=== PATIENT | female | born 1965 | race Caucasian/White ===

== ENCOUNTER 2021-08-22 08:11 | Outpatient (REF) | payer OTHER, SELFPAY ==
[2021-08-22 08:44] LABS: COVID-19 Test Negative (Negative)
== END 2021-08-22 08:12 | disposition home or self-care (01) ==
LOC: HO.LAB 08:11
PROVIDERS: Visit Provider Internal Medicine
DX: Z20.822 Contact with and (suspected) exposure to COVID-19 (principal)
CPT/HCPCS: 36415; 87635; C9803

== ENCOUNTER 2024-10-02 11:03 | Outpatient (AMB) | payer OTHER, SELFPAY ==
--- NOTE | 2024-10-02 12:03 | MHC.OFFWIV ---
Intake Vital Signs 10/02/24 12:06 Weight 156 lb BP 130/90 H Blood Pressure Location Rt brachial Position Sitting Pulse 88 Pulse Source Pulse Oximeter Pulse Oximetry (%) 98 Oxygen Delivery Method Room Air Intake Visit Reasons: EP-rt side groin pain Intake Note: Patient here for right sided groin pain that has been present for about 1 week but has worsened the past couple of days. Patient Tobacco Use Status: Never used Tobacco Allergies No Known Allergies Allergy (Verified 10/02/24 12:07) Do you need a note to return to daycare/school/sports/work: No HPI EP-rt side groin pain HPI Details 58 year old female patient presents today with a 1 week history of intermittent right groin pain. She reports a history of ovarian cysts on the right side. She has seen [facility] in [place] previously, however has not been seen there in some time. Describes sensation as soreness . No tenderness to palpation. Denies any urinary or vaginal symptoms. Denies flank pain. No fever/chils. Denies any inciting event to pain such as lifting or exercise. [facility] Social History Patient Tobacco Use Status: Never used Tobacco Review of Systems Const All systems reviewed & are unremarkable except as noted in HPI and below Physical Exam Vital Signs: Last Vital Signs Pulse 88 10/02/24 12:06 BP 130/90 H 10/02/24 12:06 Pulse Ox 98 10/02/24 12:06 Oxygen Delivery Method Room Air 10/02/24 12:06 Const General: cooperative, healthy appearing, comfortable and no acute distress Neck Neck: Yes no lymphadenopathy Resp Effort & Inspection: normal respiratory effort and able to speak in complete sentences GI Inspection: Yes normal to inspection Palpation (GI): Soft to palpation Other: mild right groin tenderness to deep palp. General: Yes bladder normal to palpation and Yes no CVA tenderness Bimanual exam- vagina & uterus: bladder normal to palpation Back/Spine/Pelvis Back: no CVA tenderness Skin General skin exam: no rashes or lesions noted Extrem Other: normal right hip exam/ROM General: Yes capillary refill normal and Yes no clubbing, cyanosis or edema Psych Appearance: grossly normal Mental Status: mental status grossly normal Speech and movement: Normal speech and movement present Results AMB Urinalysis, Automated UA Leukoctes 0 Portillo/uL Last Edit by Annamarie Gracia CCM on 10/02/24 13:05 UA Nitrite Negative Last Edit by Annamarie Gracia [facility] on 10/02/24 13:05 UA Urobilinogen 0.2 mg/dL Last Edit by Annamarie Gracia [facility] on 10/02/24 13:05 UA Protein 0 mg/dL Last Edit by Annamarie Gracia [facility] on 10/02/24 13:05 UA pH 7.0 Last Edit by Annamarie Gracia [facility] on 10/02/24 13:05 UA Blood 0 Peterson/uL Last Edit by Annamarie rGacia [facility] on 10/02/24 13:05 UA Specific [place] 1.015 Last Edit by Annamarie Gracia [facility] on 10/02/24 13:05 UA Ketone Negative Last Edit by Annamarie Gracia [facility] on 10/02/24 13:05 UA Bilirubin 0 mg/dL Last Edit by Annamarie Gracia [facility] on 10/02/24 13:05 UA Glucose 0 mg/dL Last Edit by Annamarie Gracia [facility] on 10/02/24 13:05 Assessment & Plan Assessment & Plan (1) Deep inguinal pain, right: Code(s): R10.31 - Right lower quadrant pain Plan: I advised the patient follow-up with her OBGYN as symptoms appear consistent with her known history of ovarian cysts on that right side. I called [facility] in [place] on her behalf, with her consent, and left a message for the triage nurse to hopefully call her back to schedule an appointment. Her urine dip was normal. Her right hip exam was normal with painless external/internal rotation of hip. I will start her on a short course of anti-inflammatory medication and advised she use some warm compresses to area to see if this alleviates pain. We reviewed indications, use, possible side effects of medication. We discussed that if pain becomes severe at any point, she should go to the emergency department for evaluation. She verbalizes understanding and agrees to plan at this time. Orders: Orders AMB Urinalysis Automated Today Z13.9 - Encounter for screening, unspecified Medications: New meloxicam Take 1 tablet daily as needed for pain for up to 7 days. 15 mg PO DAILY 7 days PRN 7 tabs 0RF pain, moderate Coding Level of Care Code Est Pt Level 4 (25408) Diagnoses Deep inguinal pain, right R10.31
[2024-10-02 12:06] VITALS: BP 130/90; PULSE 88; O2SAT 98
--- OUTSIDE RECORDS SUMMARY | 2024-10-02 13:22 | XMS_ITS | Data Portability ---
Author Organization [facility] - Sharath Cohen [facility] Address [address] [place] [address] Assessment No assessment recorded. Plan of Treatment Reminders Order Date Submit Date Provider Last Modified By Organization Details Last Modified Time Details Appointments None recorded. Lab None recorded. Referral occupatio nal therapist referral - Diagnosis :flexor tenosinov itis left ring fingerTre atment: ROM, tendon gliding 2023 024 [email or web address] Not available 14:56:18 Procedures None recorded. Surgeries None recorded. Imaging None recorded. Medication Orders None recorded. Patient TargetsNo targets recorded. Patient InstructionsNo instructions recorded. Reason for Referral Occupational Therapist Refer ral for Flexor tenosynovitis of finger Diagnosis:flexor tenosinovitis left ring fingerTreatment: ROM, tendon gliding Referring Physician: Bryce Arceo, Orthopedic Surgery, Encounter Date: 12/24/2023 Medical Equipment None Reported. Medications Name Sig Start Date Stop Date Status Note LastModified by Organization Details LastModified Time norethindrone acetate 5 mg tablet active Not Available Not Available Not Available Vitals None Recorded Social History None recorded. Functional Status None recorded. Mental Status None recorded. Family History Nothing Reported. Medical History No medical history recorded. Gynecological HistoryNo gynecological history recorded. Obstetrics History GPAL:G 0 P 0 0 0 0 Past Encounters Encounter ID Performer Location Encounter Start Date Encounter Closed Date Diagnosis/Indication Diagnosis SNOMED-CT Code Diagnosis ICD10 Code Diagnosis Note [id number] MD [facility] [address] [place] [address] 12/24/2023 13:07:52 01/06/2024 14:56:18 Flexor tenosynovitis of finger [id number] M65.849 Health Concerns Section Related Observation LastModified by Organization Detai ls LastModified Time None Recorded Concern Status LastModified by Organization Details LastModified Time None Recorded Advance Directives Directive None Recorded Payers Encounter Date Sequence Insurance Name Policy Number Policy Pereira Covered Member ID Pereira Member ID Guarantor Name 12/24/2023 1 [facility] ([facility]) [id number] 1 Rosa Lopez [id number] Rosa Lopez Notes Date Note Type Note Provider Name and Address Organization Details Recorded Time 12/24/2023 text/html Diagnosis: Regi er tenosynovitis left ring -sntr-fyh female with a 6 month history of painful triggering of her left ring finger. This is most bothersome when she awakens in the morning. As the day wears on her fingers less uncomfortable. She has no numbness or tingling. She has no history of trauma or other inciting event.Past family, medical, social history and review of systems has been reviewed, updated and signed by me and is located in the patient? s chart.Examination: Healthy appearing patient in no apparent distress. Alert and oriented. She has symmetric range of motion of her bilateral wrists and digits. There is crepitus at the A1 yaya left ring finger with motion. Provocative testing of her bilateral wrists and digits reveal no instability. No atrophy either upper extremity. Brisk cap refill all digits.Plan: I described to the patient the nature flexor tenosynovitis and recommended a corticosteroid injection. She declined. She requested occupational therapy. I referred her occupational therapist. She will follow up with me at her discretion. Bryce Arceo MD [address] [place] [address] [address], [place], [address], [facility] 12/24/2023 13:29:56 OBGyn Episode No OBEpisode recorded.
== END 2024-10-02 13:07 | disposition home or self-care (01) ==
PROVIDERS: Visit Provider Nurse Practitioner Family
DX: Z13.9 Encounter for screening, unspecified (principal); R10.31 Right lower quadrant pain

== ENCOUNTER → 2024-10-02 11:03 | Outpatient (BNVA) | payer OTHER, SELFPAY | DX: R10.31 Right lower quadrant pain (principal); N83.201 Unspecified ovarian cyst, right side | CPT/HCPCS: 81003 ==